=== PATIENT | male | born 1965 | race Caucasian/White ===

== ENCOUNTER 2017-03-15 10:45 | Emergency (ER) | payer OTHER ==
[~2017-03-15] VITALS: Ht 177.8 cm; Wt 95.3 kg
[~2017-03-15 10:45] MED LIST: AMLODIPINE BESY10 M1 PO; BUTRANS1 EAC1 TOP; CRESTOR10 M1 PO; CYCLOBENZAPRINE10 M1 PO; IBUPROFEN800 M1 PO; LIDOCAINE35.44 GM TOP; LOSARTAN-HCTZ1 EAC2 PO; VICODIN 5-3001 EACH PO
[2017-03-15 10:52] VITALS: BP 130/76
== END 2017-03-15 11:13 | disposition admitted as inpatient to this hospital (09) ==
LOC: ERH 10:45
DX: S01.01XA Laceration without foreign body of scalp, initial encounter (principal)

== ENCOUNTER 2018-06-23 19:19 | Emergency (ER) | payer OTHER ==
[~2018-06-23] VITALS: Ht 177.8 cm; Wt 95.3 kg
--- NOTE | 2018-06-23 21:04 | RADIOLOGY REPORT ---
EXAMINATION: SHOULDER 3 VIEWS, LEFT CLINICAL INFORMATION: Left shoulder pain after fall. COMPARISON: Chest ray graft from 07/15/2014. TECHNIQUE: AP views of the left shoulder were obtained in internal and external rotation. In addition, a Y view was obtained. FINDINGS: There are no fractures or dislocations. The humeral head is seated within a well-formed glenoid. There is mild widening to the left AC joint measuring approximately 11 mm. IMPRESSION: Mild widening to the left AC joint. This is likely not significantly changed from prior exam. No evidence for acute osseous injury.
[2018-06-23 21:24] VITALS: BP 112/73
[2018-06-23] MEDS ORDERED: NAPROSYN500 M1 PO (22:11)
--- NOTE | 2018-06-23 22:13 | ED GENERAL ADULT ---
History of Present Illness General Chief Complaint: Shoulder Injury Stated Complaint: LT SHOULDER PAIN S/P FALL Source: patient Exam Limitations: no limitations Vital Signs & Intake/Output Vital Signs & Intake/Output Vital Signs Date Time Temp Pulse Resp B/P B/P Pulse O2 O2 Flow FiO2 Mean Ox Delivery Rate 06/234 75 18 112/73 96 06/23 1933 97.8 74 16 117/79 Allergies Coded Allergies: NO KNOWN ALLERGIES (01/20/13) Reconcile Medications Amlodipine Besylate 10 MG TABLET 1 TAB PO DAILY HEART (Reported) Buprenorphine (Butrans) 1 EACH PATCH.TDWK 1 PAT TOP UNKNOWN (Reported) Cyclobenzaprine HCl 10 MG TABLET 1 TAB PO TID PRN SPASM Hydrocodone/Acetaminophen (Vicodin 5-300 MG Tablet) 1 EACH TABLET 1 TAB PO Q4- 6 PRN PAIN (Reported) Ibuprofen 800 MG TABLET 1 TAB PO TID PRN PAIN Lidocaine HCl (Lidocaine) 35.44 GM OINT...G. 1 JULIET TOP PAIN (Reported) Losartan/Hydrochlorothiazide (Losartan-Hctz 100-25 MG Tab) 1 EACH TABLET 1 TAB PO DAILY HEART (Reported) Naproxen (Naprosyn) 500 MG TABLET 1 TAB PO BID PRN pain Rosuvastatin Calcium (Crestor) 10 MG TABLET 1 TAB PO DAILY CHOLESTEROL ( Reported) Triage Note: PT STATES THAT ABAOUT 1 HOUR AGO HE SLIPPED IN THE STORE ON WATER AND FELL DOWN, COMPLAINS OF L SHOULDER PAIN AND L ARM PAIN, STATES THAT HE DID NOT FALL ONTO HIS SHOULDER THAT HE JUST TWISTED HE WAS GOING DOWN,PT NOTED WITH FULL ROM TO L ARM Triage Nurses Notes Reviewed? yes Onset: Abrupt Duration: hour(s): Timing: single episode today HPI: 52-year-old male with a history of hyperlipidemia presenting with left shoulder pain status post mechanical fall approximately 1 hour prior to arrival. Patient reports that he slipped and fell on water at a store. Did not strike his arm, landed on his knees, but hyperextended his arm back as he fell. Denies head strike or LOC. Denies preceding symptoms such as lightheadedness, dizziness, chest pain, shortness of breath. Endorses slight numbness and paresthesias to the left forearm. (Soledad OWEN,Shannen) Past History Travel History Traveled to [place] past 21 day No Medical History Any Pertinent Medical History? see below for history Neurological: NONE EENT: NONE Cardiovascular: hyperlipidemia Respiratory: NONE Gastrointestinal: NONE Hepatic: NONE Renal: NONE Musculoskeletal: R LOCKED SHOULDER Psychiatric: NONE Endocrine: NONE Blood Disorders: NONE Cancer(s): NONE HIGH TENSION TESTER/Reproductive: NONE Surgical History Surgical History: non-contributory Psychosocial History What is your primary language Kiswahili Tobacco Use: Never used ETOH Use: denies use Illicit Drug Use: denies illicit drug use Family History Hx Contributory? No (Shannen Gary) Review of Systems Review of Systems Constitutional: Reports: no symptoms. EENTM: Reports: no symptoms. Respiratory: Reports: no symptoms. Cardiovascular: Reports: no symptoms. GI: Reports: no symptoms. Genitourinary: Reports: no symptoms. Musculoskeletal: Reports: see HPI. Skin: Reports: no symptoms. Neurological/Psychological: Reports: no symptoms. Hematologic/Endocrine: Reports: no symptoms. Immunologic/Allergic: Reports: no symptoms. All Other Systems: Reviewed and Negative (Shannen Gary) Physical Exam Physical Exam General Appearance: well developed/nourished, no apparent distress, alert, awake , comfortable Comments: Gen.: Well-nourished, well-developed, no acute distress. Head: Normocephalic, atraumatic. Eyes: Normal inspection bilaterally Ears: Normal inspection bilaterally Nose: Normal inspection Neck: Normal inspection Lungs: clear to auscultation bilaterally, normnal breath sounds Heart: regular rate and rhythm Abdomen: soft and non-tender Extremities: Left shoulder Inspection: Normal Palpation: Tenderness to palpation over the anterior and superior aspect of the shoulder ROM: Mild decrease in range of motion of the shoulder, mild difficulty with abduction Sensation: intact to median/radial/ulnar nerves Motor strength: 5/5 Pulse: 2+ radial pulse Neurologic: alert and oriented x3, steady gait Skin: warm and dry Psychiatric: Normal mood and affect, no apparent delusions or hallucinations, behavior appropriate Core Measures ACS in differential dx? No CVA/TIA Diagnosis: No Sepsis Present: No Sepsis Focused Exam Completed? No (Shannen Gary) Progress Differential Diagnoses I considered the following diagnoses in my evaluation of the patient: [Shoulder sprain versus fracture versus dislocation versus nerve injury versus tendon injury] Plan of Care: Current Medications Sig/Shahrzad Start time Last Medication Dose Stop Time Status Admin Naproxen 500 MG ONCE ONE [id number] UNVr (Naprosyn) 06/23 2216 x-ray Mild widening to the left AC joint. This is likely not significantly changed from prior exam. No evidence for acute osseous injury. Placed in sling. Given Rx naproxen. Given ortho follow-up. Counseled on supportive care and strict return precautions. Initial ED EKG: none (Shannen Gary) Departure Departure Disposition: HOME OR SELF CARE Condition: Stable Clinical Impression Primary Impression: Sprain of left shoulder Referrals: Nas LO,Halle Unknown (PCP/Family) Additional Instructions: Use naproxen as needed for pain. Follow-up with orthopedics for reevaluation. Return to the emergency department for any new or worsening symptoms per Departure Forms: Customer Survey General Discharge Information Prescriptions: Current Visit Scripts Naproxen (Naprosyn) 1 TAB PO BID PRN pain #60 TAB (Shannen Gary) PA/CIRCULAR DISTRIBUTOR Co-Sign Statement Statement: ED Attending supervision documentation- [] I saw and evaluated the patient. I have also reviewed all the pertinent lab results and diagnostic results. I agree with the findings and the plan of care as documented in the PA's/CIRCULAR DISTRIBUTOR's documentation. [X] I have reviewed the ED Record and agree with the PA's/CIRCULAR DISTRIBUTOR's documentation. [] Additions or exceptions (if any) to the PAs/CIRCULAR DISTRIBUTOR's note and plan are summarized below: [] (Dominic Gonzalez DO) Critical Care Note Critical Care Note Critical Care Time: non-applicable (Shannen Gary)
== END 2018-06-23 22:30 ==
LOC: ERH 19:19
DX: S43.402A Unspecified sprain of left shoulder joint, initial encounter (principal); W01.0XXA Fall on same level from slipping, tripping and stumbling without subsequent striking against object, initial encounter; Y92.512 Supermarket, store or market as the place of occurrence of the external cause
CPT/HCPCS: 73030-LT